=== PATIENT | female | born 1985 | race Caucasian/White ===

== ENCOUNTER 2017-05-10 11:52 | Emergency (ER) | payer MEDICAID, OTHER ==
[~2017-05-10] VITALS: Ht 157.5 cm; Wt 68.0 kg
[~2017-05-10 11:52] MED LIST: AMOXICILLIN; MOTRIN; ZANTAC
[2017-05-10 12:29] LABS: CLARITY URINE CLOUDY (CLEAR); COLOR URINE DARK YELLOW (YELLOW); KETONES URINE NEGATIVE (NEGATIVE); LEUKOCYTE ESTERASE URINE 3+ (NEGATIVE); NITRITE URINE POSITIVE (NEGATIVE); OCCULT BLOOD URINE 3+ (NEGATIVE); PROTEIN URINE 2+ (NEGATIVE); SPECIFIC GRAVITY URINE 1.022 (1.005-1.030)
[2017-05-10 15:22] VITALS: BP 120/83
== END 2017-05-10 15:27 | disposition home or self-care (01) ==
LOC: ER 12:37
DX: B37.49 Other urogenital candidiasis (principal)
CPT/HCPCS: 81001; 81025; 87077; 87086; 87186; 99284

== ENCOUNTER 2018-07-26 10:55 | Emergency (ER) | payer MEDICAID, OTHER ==
[~2018-07-26] VITALS: Ht 157.5 cm; Wt 73.5 kg
[2018-07-26 19:35] LABS: CLARITY URINE TURBID (CLEAR); COLOR URINE YELLOW (YELLOW); KETONES URINE NEGATIVE (NEGATIVE); LEUKOCYTE ESTERASE URINE 3+ (NEGATIVE); NITRITE URINE NEGATIVE (NEGATIVE); OCCULT BLOOD URINE 1+ (NEGATIVE); PROTEIN URINE TRACE (NEGATIVE); SPECIFIC GRAVITY URINE 1.015 (1.005-1.030); UROBILINOGEN URINE 0.2 E.U./dL (0.2-1.0)
[2018-07-26 20:14] VITALS: BP 114/70
== END 2018-07-26 21:30 | disposition left against medical advice (07) ==
LOC: ER 10:55
DX: M54.5 Low back pain (principal); Z53.21 Procedure and treatment not carried out due to patient leaving prior to being seen by health care provider
CPT/HCPCS: 87077

== ENCOUNTER 2019-12-04 14:49 | Emergency (ER) | payer MEDICAID ==
[~2019-12-04] VITALS: Ht 154.9 cm; Wt 66.0 kg
[2019-12-04] MEDS ORDERED: ACETAMINOPHEN 325MG TABLET PO ONE (15:30)
[2019-12-04 17:47] VITALS: BP 118/69
== END 2019-12-04 17:48 | disposition home or self-care (01) ==
LOC: ER 14:49
DX: M25.531 Pain in right wrist (principal); W22.8XXA Striking against or struck by other objects, initial encounter; Y93.89 Activity, other specified; Y92.89 Other specified places as the place of occurrence of the external cause; Y99.8 Other external cause status
CPT/HCPCS: 29125; 73100; 73130; 81025; 99284

== ENCOUNTER 2023-08-14 09:39 | Emergency (ER) | payer MEDICAID, OTHER ==
[~2023-08-14] VITALS: Ht 157.5 cm; Wt 81.0 kg
[2023-08-14 09:51] VITALS: O2SAT 98
[2023-08-14] MEDS ORDERED: NITR-87 MT (10:41)
[2023-08-14 11:18] LABS: CLARITY URINE TURBID (CLEAR); COLOR URINE RED (YELLOW); LEUKOCYTE ESTERASE URINE 3+ (NEGATIVE); NITRITE URINE POSITIVE (NEGATIVE); OCCULT BLOOD URINE 1+ (NEGATIVE); PROTEIN URINE 1+ (NEGATIVE); SPECIFIC GRAVITY URINE 1.025 (1.005-1.030)
[2023-08-14 11:42] VITALS: BP 131/80; PULSE 70; RESP 18; TEMP 98.2
[2023-08-14 11:48] LABS: GLUCOSE URINE 1+ (NEGATIVE); KETONES URINE TRACE (NEGATIVE)
[2023-08-14 11:50] LABS: RBC URINE TNTC /hpf (0-2)
[2023-08-14 11:51] LABS: SQUAMOUS EPITHELIAL CELL URINE 1+ /lpf (RARE/1+); WBC URINE TNTC /hpf (0-2)
[2023-08-14 11:52] LABS: BACTERIA URINE 3+
== END 2023-08-14 11:48 | disposition home or self-care (01) ==
LOC: ER 09:39
DX: N39.0 Urinary tract infection, site not specified (principal)
CPT/HCPCS: 81003; 99283

== ENCOUNTER 2024-08-18 21:21 | Emergency (ER) | payer MEDICAID ==
[~2024-08-18] VITALS: Ht 167.6 cm; Wt 82.0 kg
[~2024-08-18 21:21] MED LIST changes: -AMOXICILLIN; -MOTRIN; +NITR-87 MT; -ZANTAC
[2024-08-18 21:29] VITALS: BP 126/63; PULSE 65; RESP 20; TEMP 36.8; O2SAT 100
[2024-08-18 23:07] LABS: BASOPHILS % 0.3 % (0.0-2.0); EOSINOPHILS % 0.3 % (0.0-5.0); HEMATOCRIT. 42.1 % (36.0-48.0); HEMOGLOBIN. 13.6 g/dL (12.0-16.0); LYMPHOCYTES % 18.1 % (20.0-50.0); MEAN CORPUSCULAR HEMOGLOBIN 27.8 pg (28.0-32.0); MEAN CORPUSCULAR HGB CONC 32.4 g/dL (31.0-37.0); MEAN CORPUSCULAR VOLUME 85.9 fL (81.0-99.0); MEAN PLATELET VOLUME 9.8 fl (7.4-10.4); MONOCYTES % 4.2 % (2.0-8.0); NEUTROPHILS % 77.1 % (40.0-76.0); PLATELET 327 x1000/uL (130-400); RED CELL DISTRIBUTION WIDTH 14.7 % (11.6-14.6); WHITE BLOOD COUNT 14.8 x1000/uL (4.5-11.0)
[2024-08-18 23:13] LABS: CHLORIDE 99 mEq/L (98-107); POTASSIUM 3.9 mEq/L (3.5-5.1); SODIUM 139 mEq/L (136-145)
[2024-08-18 23:14] LABS: CALCIUM 9.7 mg/dL (8.7-10.4); CARBON DIOXIDE 31 mEq/L (21-32)
[2024-08-18 23:19] LABS: CREATININE 0.8 mg/dL (0.6-1.0); GLUCOSE 108 mg/dL (70-105); UREA NITROGEN BLOOD 12 mg/dL (9-23)
[2024-08-18 23:21] LABS: ALANINE AMINOTRANSFERASE 33 IU/L (10-49); ALBUMIN 4.4 g/dL (3.2-4.8); ASPARTATE AMINOTRANSFERASE 56 IU/L (<34); BILIRUBIN DIRECT 0.2 mg/dL (<=3.0); BILIRUBIN TOTAL 0.6 mg/dL (0.1-1.0)
[2024-08-18 23:22] LABS: PROTEIN TOTAL 7.7 g/dL (6.0-8.3)
[2024-08-19 01:31] LABS: HCG SCREEN NEGATIVE
[2024-08-19] MEDS: ACETAMINOPHEN 325MG TABLET PO ONE (02:02)
[2024-08-19] MEDS ORDERED: SULF1TAB48 MT (03:33)
[2024-08-19] MEDS: KETOROLAC 15MG/ML VIAL IM ONE (03:42)
== END 2024-08-19 03:45 | disposition home or self-care (01) ==
LOC: ER 21:21
DX: K52.9 Noninfective gastroenteritis and colitis, unspecified (principal); Z98.51 Tubal ligation status
CPT/HCPCS: 99285; 80076; 80048; 84703; 83690; 85025; 86850; 86900; 86901; 36415; 74176; 96372; J1885